=== PATIENT | male | born 1980 | race Caucasian/White ===

== ENCOUNTER 2018-12-13 21:00 | Emergency (ER) | payer BC ==
[2018-12-13 21:18] VITALS: BP 109/69
[2018-12-13] MEDS ORDERED: DOXYcycline CAP(*) 100 MG PO ONE (21:36)
--- NOTE | 2018-12-13 21:37 | UC ---
General HPI - HPI Summary HPI Summary: pt removed a tick from his R side. he is c/o burning at the site. the tick is mildly engorged. - History of Current Complaint Chief Complaint: Naeem Stated Complaint: INSECT BITE Time Seen by Provider: 12/13/18 21:15 Hx Obtained From: Patient Pain Intensity: 0 Associated Signs & Symptoms: Negative: Fever - Allergy/Home Medications Allergies/Adverse Reactions: Allergies Allergy/AdvReac Type Severity Reaction Status Date / Time Penicillins Allergy Severe Unknown Verified 12/13/18 21:18 Reaction Details Home Medications: Home Medications NK [No Home Medications Reported] 12/13/18 [History Confirmed 12/13/18] PMH/Surg Hx/FS Hx/Imm Hx Previously Healthy: Yes - Surgical History Surgical History: None - Family History Known Family History: Positive: Non-Contributory - Social History Occupation: Employed Full-time Lives: With Family Alcohol Use: Weekly Substance Use Type: None Smoking Status (MU): Never Smoked Tobacco - Immunization History Vaccination Up to Date: Yes Review of Systems All Other Systems Reviewed And Are Negative: No Constitutional: Negative: Fever, Fatigue Musculoskeletal: Negative: Arthralgia Neurological: Negative: Weakness, Paresthesia, Numbness Physical Exam Triage Information Reviewed: Yes Appearance: Well-Appearing Vital Signs: Initial Vital Signs Temp 97.9 F 12/13/18 21:08 Pulse 78 12/13/18 21:08 Resp 16 12/13/18 21:08 BP 109/69 12/13/18 21:08 Pulse Ox 98 12/13/18 21:08 Vital Signs Reviewed: Yes Eyes: Positive: Conjunctiva Clear Neck: Positive: Supple Respiratory: Positive: No respiratory distress Musculoskeletal: Positive: ROM Intact Neurological: Positive: Alert Psychological: Positive: Age Appropriate Behavior Skin Exam: Normal, Other - abrasion R side where tick removed. no bullseye. Course/Dx - Course Course Of Treatment: site cleaned and Bacitracin applied. - Diagnoses Provider Diagnosis: Tick bite Discharge - Sign-Out/Discharge Documenting (check all that apply): Patient Departure All imaging exams completed and their final reports reviewed: No Studies - Discharge Plan Condition: Stable Disposition: HOME Patient Education Materials: Tick Bite (ED) Referrals: FLORENCIO Leal [Medical Doctor] - If Needed - Billing Disposition and Condition Condition: STABLE Disposition: Home
== END 2018-12-13 21:43 | disposition home or self-care (01) ==
LOC: UCCORT 21:00
DX: T14.8XXA Other injury of unspecified body region, initial encounter (principal); W57.XXXA Bitten or stung by nonvenomous insect and other nonvenomous arthropods, initial encounter
CPT/HCPCS: 99202; A9270-GY; G0463

== ENCOUNTER 2019-02-20 18:03 | Emergency (ER) | payer BC ==
[2019-02-20 18:24] VITALS: BP 118/68
--- NOTE | 2019-02-20 19:44 | UC ---
Complaint Male HPI - HPI Summary HPI Summary: Per car lubricator: "sx started this morning--"a little bit difficulty" urinating, "discomfort" when urinating, no penile discharge, denies fever/chills/back pain -not concerned STDs -has some irritation of urethral meatus. small little dots and distal shaft. not elevtead. not itchy. not painful. no tingling. -. -reports monogamy w/ . last intercourse 4 days ago. uncertain if his may have any sx or yeast infection sx. -no swelling/lumps/bumps. [id number]36770678565463297779038 [id number]44220861188 4972125070847380394118384774855721514912321198274148630396598731769DUB "[id number]09412265932287837 30686481015128551699913707258137765549632519935335 88041078241888608523772930878379967005149269747197029950774143405537083406659229 63817479266526839614694612790249248336591056176008323722622319522015105860744600 6758670782165059347912880225200473883391 22751270436664470064889010266521757104490701096183306021026876840761418474978432 93193325928282657484546644501441736508045799859113960157517065526846476367455174 8863619315217806096961665575539698998790 94633324612591995278210321272591324015387103341900068458262340963603975290431687 49978425106866254233860529019894360802748022455049567639196115497360914629980668 3944436546732301516574576459451878267586 58348412044612669028012780875814736025659906953970821582391164698680145906185112 55262984790015737995848258174876951446132934909374746635114146340774324043200885 7234040224026913299812793730197121577196 35440654996155871473759611515324220094924878926007006087028983432303898530324934 43707298894017939298536425814449239435666868554442974660244324634678793569351646 2304125753197121657850412493370461195947 41532194801790755578571309621222305594469861063237153606382153984564699707957764 74838864910242414827854307999148700887232518191634366870101238986615718331287564 9380513305530711150055560344587568410191 47421840469155338126583063938365085968782021123736393468416894912895381361275483 03001768702941979072016243011801964896960323475015314474153924762354129825329096 9864109508683998440697305569726139958065 69151383475665078896590730487898223416658424702354380625652295212494829431933488 67387350698258353736055071590055252907122423253504121688183970798259642976090578 3266679030408835558401985966655320274486 64090590568818296920669322842424776239037704863273083671468134388725814593267341 99278189659238666151532720163866896311356061060238705614327274152434509705762785 8193031129644277851379680456903292642030 62352791291091813204443904792125712462802712758287724757383168603498357753067249 66497600996666775210492572028123639400052068113683088868393407379094309795961462 6229757755367200409068477423156700957573 34705935070636721038945238220111394018707304809021453141127836513749375140467108 89617684531090055750640014874994237482780455627979266539509764766448381820092627 9278999554556490521686320087878203809033 08813758772338792503170034775999237007919802261758703175947205902182250964990736 70937447948341988721670547476588283428510370274659085075179603708941663503169588 8387002455854822519536937722276911349237 77518021567774812076064691113897703068780919248267045342164790690193612579180469 49293540822274355686802018582980479710885869371327575527699006646330950834934089 1481568125741702133123991194427024156707 77939207419486529983688860583807992198501715008005383675592633942877879131396483 75767215066578649767992506510805186480737101111464773761870848167200900683784639 5064249192909296980607933652243030462921 16814193423373541219605720837767211895199553512932477948163365703657377298622212 70878950432491932075739152642813678034348276485537595361347406425583068549913605 1579705882255308314418317083243193961777 69202574772191180087311823636458165006147933274748571363349818504427377849391982 94359054020770012620310373008345410426211438385165628630564138792274367010620391 7989911744063000875474108472928162422701 16386007373569748949667316025339130242908069356600613253536310060222128860684386 43537747480999149826381195422048209174346928531036544976460578800651305826026145 0774713208976584954721811736364794994625 58527143171588158590689609501278732213555595867863072547538204606538870494415714 22943503323471446677989181648360190208495619919508596002669045726865226134742868 7910100041835306790903465057535200402869 51943412535774254489605823859316778177020715248173770489770970341326384945531597 76518496515965371736363001160974458593459878047164679939304023257795906103519737 2189293996344109594203521330128522440076 91135574496019701422672456715894646797524920504025924121564976979873418947959636 10757600649321204542846367600585424455927104257016878062236367999207396911164727 6981105570010655384162729681276509297844 45892254048913665206681972714766431635503047580922078183782324663624756816156768 77849014923190271470246958231991618030917595882970115841998601086074306745589628 5794816897556094664977700051058168009934 81522639325658199988442924465966706153368530058870086026412547169254787564801026 43916694763132893684283196661232240136611000281147499227225926322757937428120944 1345150133328956190175545359506460046214 17632823592479505006549670533307383766775714659369441951648785285350436806625682 00863611276088720316757485340902999670157552691750615432619109937951885987463223 3542735684621467953265031769629678334442 02344138324710313494354166153031134476554820221692900076119709345909160864137700 64949815798094450744016945528482716931585774851753095827301727931811412199436868 0874277734005074365797311129287111262087 91031283023792717934889369973602379432174384694885644929342786778453524014950146 90605270165130268060656931262079746550032050577711728322875402409413127206520978 6110338740034350847719723176792238128887 66726910444608752678769731420866007849807178831187594324701537383935613065717115 30589442112072535187729871057916903237511831119378458245516619386673422990651338 8560665664585125189642225073955861147779 87726286353083025237913865345357055709922207188803274803406858394328396638488444 38223254278640082071497436955807284282776671259857442191463620563942381632998141 0829486537594828317562334995242961823924 76711860621538764241734097400616813748697585276180736419515876477384217206865309 32149959017290789097307169045743924960897814609079248199375273713852512613695514 4984686377819582498274239262776626081090 32234236563494710032996280089144083537525373592259254014201652343808373005231694 02181943845005253382436226318329474375063619538381855405334091806529902305589971 7989762586314950678245656508914418279554 06136807159179263083231544230599248091794278604031114496305486313167184646157805 59516189026700558244568410829011615265776643604984304938097249872806508549586831 3770495757856812763795003084009669022774 08996358367207959372531080842981214724579308449881450700660130652151028038167852 12692370751519601124418426630299926321984803789471799848449400211295953377683039 5679357651689736294282839742037065064457 99575923525958276940642394723116946526105992040197383909070785999456338394638423 01261713902797571555953867195579330617549566386241488378504710230156960411196508 4935088495853362654917944848340659855707 44495364872297529703292376804805316845871181449923397184390747783512808334580919 97190238559483378644570998553163070970679112829383861764790492013481507530838943 5529485461511349195509640233980479307411 62708117703638558844126045880455704363664798250962092838203092926071656999785258 32179137934568834609090137943820441422407129737804924038144731064823317208433631 2293646951032292068942773673846197833191 00011642076442518019471155755130395078736038539840665676147003109401895426965228 93600327796715331730453817479230687218580286657826825723942615636700882090232681 1416453958663648606749416808389953252202 99542716740984975734512582364226737127665309325365585924723087831536199884194366 56606947024817739832950041083703595430298918254945701125801530127830150613106027 1491565803346206959387460812039896576951 80894459639060880815227352777380030993870199083459351732929200707910946085894915 91892578404246639044025181877452840971111758825622487987232948585989250199124132 9854161045289599378793159275433209797996 86694857917577169548216538417008069827642080376680999786082755416679352886818327 87193722730039610532008714373051707328387286910823023833562462618364204319815219 0622093861836746529020683540916421236028 53439027379135177738159331919373261544780613284730393624672946847837673319193092 72531994691592917620795525839069542543223572786320896311773903264856169395650181 1336115527934061203858475953345338186937 01060764870967691646322622486364649627947302559160810268853756940488184833174495 27245945861460819606576114280201268702552757080854005227146165940982318229069520 0122930919401346884629445310954967459595 80016591352817444298236706687398887323135187889405100760549310991560399935668926 08866833322882094933834097547490636091791608607071444787380736711468427988187776 0477012348371197844320526009641632674024 27165341935689695503264381775323760172980768624355083997666369922433961721322808 21881047831577400733520742661662660769241166885236059093110239909146291782749406 7536317000064093289661270407845346046851 19160413795387598330718333555535031527735347764874228934225200544296568474140366 36755105280901629989603833063514653179851035551166723412290559927267909344057121 8731284211045241299570724519650029328364 86694589109249225859757932391659731520221166886592639291807396173128838528974375 19348147880193243955954998433773281992057189201933157171093504577566088445774737 2605977490077348668886416000616896835545 07291801185633340736025900476273187879295033874466438778124614234233101855816481 60202755491186657599040867457037784480605637419386374720898489925927289843781218 2545888622376007549763007292286672207803 31395442295298596514033368060115276240847856247587929951794453329304655532574423 28328537117674960361660676232955981041190886256609626344121517415219329459716721 0860285468660150724383904345262565242108 84450333243214641667018505366821157494134683460149305905676467225552525164991646 99109735343529520573024309298397517418057918593440171002973721177711200827360576 8287519562711437243590603509370153098131 89807034569428031075091477332034156314610223721019354990155776718206247004784237 44972178890613891843581547599890075389545409959409197040706152201498482265068811 5848654419517726626546212274890666680296 62590708246122023271751950145307921866963411277558278994072420105356264731076551 70993547220802869168188977314327740552726123437937269572057606798214468928784596 2590134066576370504353812548432161630314 03271822548296423558856067203115176824972449309526759784692824759355011498067795 28813744131320818803575393931236650458819159668176905231923230730432746174873695 2791251984622347782875179423290492437938 90136789561176605133499191656565887714756216655433709656987079100123260192401048 84216471773817336153762871048271017515789120321864355411314100795981809199218121 0270641316924047553181537000698165293250 58215591885004867904044265836831264015207672664506868539734119336353779869379210 58975944329993973278869713720703364974554658989497838399387426701737466000012418 6397640495476128428819209709053404368931 81501947537679374636142762327192664218594763590764718693158340759582238363863385 62367130713964912499111700168090903662424479307629558597010517653262423139641861 8983153908578484893250454293808031942129 81299232207679505940957217735387887773317300917493272207252649874161993976037267 46277939680197679797609165056757162532168796816853826186991741516838676466764573 2013021787649631860268884478625686827091 19275055797122440876287026613304467251418270289661706867893738032027558156840859 19209796976440836984737920831478791563486651661398219500557758186512110810571330 5873628108183641136795174949957754578406 89151200728307339645687515062475900272378629514677737404964361447877927672752363 13140548546784503243437256639629532861683608024701767376366084891190266194283918 0675756080463068540809901540764020154411 01660997295326148502685681860871126786643381868848850196018419842852520859309676 77258523135696202391036660989370265592486077414575809114986913305721483582509218 2910715381444261757926139463566080624127 22784988211351614055829467710391057243520401901186348655411064433303097591592129 41978907233393416257004047695072869185598763628787249641691322844460608500292186 0301881226732689822215436004751480415302 31977486040063697762720283178407235068993486581336355252440652321585703468477057 86536977746879903532344640697530477872181476377172348999954287043633499387040282 6139199289535313578919921354333241267772 91649435687216046259256256768565921643290109769891972376442012203176217767152949 82356405996280521879947958417798420326504720210490920074450028236829065343794459 7920907384163691159181878181409840602088 34593768844220648244997126816561916035964941079423610039123610395469428665139626 78397818652056937742487323653829746680061351622628689239069292183779195112281188 2328995835407391086107736382463003096691 71775147462042550108854799246056522684549830686528843906291137518773439125405567 14193086825487276481443707928864430416769567158215112461487413811447910612030509 1369142079886172579474823609370014086599 71286216248928654260843819254505101677384396148097203564620473974041581722912453 03457562748145311049293953718925586323526108324903966273587565690579420093588240 7064814677814590479836505717578961586347 73034125294598580055359817304891834883967660483524168357482087655904528011747801 37771513856479127892873238362140959462489373948269408632178396145718757560574008 6163774195210249971729008339883337012936 81041437449486088745864365492278250139868919025868896569616450334884373422746186 78735556510924550289172314224300823790062729097157464671046497459843399556471295 2324066056184466903551035884658508191946 24373622286123057796609063955375193263554965499206126339468874993879820945004927 40179792024322691348621344841888777315007037527749992445604446550347019933373031 1498422832029930590568944090003962650763 09788451450468713633700257924051268161112386220550911848259114255371057286596766 20935702237461868605431881944706778159098552330932901583804579738031955745158518 0432741062582080221468279421212990425439 00731561023751465292009978712597359027254745447811733591719944371413295982754197 49083916223216995553531333401226282087544721120197368707955923656683246843742092 1457788303949422616364698669832747171954 29423368329801145676415547904914184962126861300233681131077364800417702950329792 75898041412414979977872205004545177658970813776861372229537330306432507459629293 8200158265645548395136597846574257405649 78584767389130656021568783521704258414493949116066336544344526198059137042264042 62632425824670220153299294922193948345852998933697060177074791555063998477015624 0407800064781639708038446163861468922857 31245728846290893065352910798934871596594674524857579217541698011620415143920357 30295517897635739999187587968312774749431261310919399242673941646666276682186572 1015455304848322049124903776121442047789 94520883938555228468233914741223232540628847120423030630055842967613802627121665 07753491193445910087799200155200291918767051842555015855987942640057841163298404 6759665162926465469936104623152835481851 82146640171822989584134762971635842019472049653800831841922148492896592881690632 77721119688250515463185429063764002986398762796623776699355532261150110150593191 3214926458115914768595167800253433527768 33360542833682524297984269109953793329959353699304637635959119247137284283887653 76395133489123081570725148805630389863888709473809586101359167053324086470928834 4016971527266014107992256796928326938694 74112457583580766349726011000882042269798942032291341975990241940986601367795414 09546196552749650891162303450414214419221045091775723270434921238341433905622111 5925633277923054416226995346159719506799 24689722937496301809922637498820183479920678428833539482060828783082023807941701 35949790323982013993445944726255364676840310469177681098315330561480366271203056 3103154320321028561835730557372312428344 76501625917759902654966652353466292026449562502671506746905928993895791652615170 29548098692137575589546766112899488749503180225482298026236528537837965290101583 3143169939546406814922685534910876227963 44228600134574993404497475480025360453541388167516516477268786283612722773576569 87921748196889135466351314692634673586831974999464246076246250964658376762741783 3273892373579335306233923627891236999375 88348015635131599284585358299202985308905193168648719807580172827187019683480773 26130435453160642773825036388407475751582930654396710433020861680340863860459616 1235137432947341694448784142323414407176 40310785580776172521739260004969802724817263336552574177654209098849462111231811 63494453852177384022171025121664613391629133049336223809978556769277470537835643 7341124234863409636551185840265445461581 38870844781070724847512349530130177073423389238001586632404647121164611732871431 34585599272253638518354318675637280143243860300911440169765464907022016871017465 5324465290761266973016798271845054288591 54529146626298306794277601423049731571137360044026531594497087452011965447351027 3333 - History of Current Complaint Chief Complaint: UCGU Stated Complaint: PERSONAL Time Seen by Provider: 08/08/19 18:32 Pain Intensity: 0 - Allergies/Home Medications Allergies/Adverse Reactions: Allergies Allergy/AdvReac Type Severity Reaction Status Date / Time Penicillins Allergy Severe Unknown Verified 02/20/19 18:24 Reaction Details PMH/Surg Hx/FS Hx/Imm Hx Previously Healthy: Yes - Surgical History Surgical History: None - Family History Known Family History: Positive: Non-Contributory - Social History Alcohol Use: Weekly Alcohol Amount: once a week Substance Use Type: None Smoking Status (MU): Never Smoked Tobacco - Immunization History Vaccination Up to Date: Yes Review of Systems All Other Systems Reviewed And Are Negative: Yes Constitutional: Positive: Negative. Negative: Fever, Chills, Fatigue Skin: Positive: Rash Eyes: Positive: Negative ENT: Positive: Negative Respiratory: Positive: Negative Cardiovascular: Positive: Negative Gastrointestinal: Positive: Negative Genitourinary: Positive: Dysuria, Urgency. Negative: Hematuria, Frequency Motor: Positive: Negative Neurovascular: Positive: Negative Musculoskeletal: Positive: Negative Neurological: Positive: Negative Psychological: Positive: Negative Is Patient Immunocompromised?: No Physical Exam Triage Information Reviewed: Yes Appearance: Well-Appearing, No Pain Distress, Well-Nourished - very pleasant Vital Signs: Initial Vital Signs Temp 98.1 F 02/20/19 18:19 Pulse 58 02/20/19 18:19 Resp 15 02/20/19 18:19 BP 118/68 02/20/19 18:19 Pulse Ox 100 02/20/19 18:19 Eye Exam: Normal Respiratory Exam: Normal Cardiovascular Exam: Normal Abdominal Exam: Normal Male Genital Exam: Positive: Erythema - mild non-blanching urtehral meatus. no sore/lesions. dorsal surface of distal shaft w/ 2- 3 mm in size non-blanching erythematous round spots w/ dc or streaks. non tender. no LAD. Negative: Bleeding Musculoskeletal Exam: Normal Musculoskeletal: Positive: Other: - Lyndsay Kapoor< RN as paragliding instructor in room during exam Neurological Exam: Normal Psychological Exam: Normal Skin Exam: Normal Complaint Male Course/Dx - Course Course Of Treatment: UA w/ trace blood. all else neg -treat w/ cipro x 7 d. order urine cx. -GC/chlam - he is agreeable to test although not concerned -? general urethral meatus irritation and treat spots w/ clotrimozole as ? fungal irritation - Differential Dx/Diagnosis Differential Diagnosis/HQI/PQRI: Phimosis, Other - UTI Provider Diagnosis: Dysuria Discharge - Sign-Out/Discharge Documenting (check all that apply): Patient Departure All imaging exams completed and their final reports reviewed: No Studies - Discharge Plan Condition: Stable Disposition: HOME Prescriptions: Ciprofloxacin TAB* [Cipro 250 MG Tab*] 500 mg PO BID 7 Days #14 tab Clotrimazole 1% CREAM* [Clotrimazole 1%*] 1 applic TOPICAL BID #30 tube Patient Education Materials: Dysuria (ED) Referrals: No Primary Care Phys,NOPCP [Primary Care Provider] - [facility] [Outside] - 7 Days Additional Instructions: We are sending the urine sample to see if there is any infection. Please make sure to follow up with a primary care physician, especially because of the small amount of blood in the urine. We are giving you an antibiotic in case there is a UTI. you can also use this topical anti-fungal cream as this may help the new spots that you have. - Billing Disposition and Condition Condition: STABLE Disposition: Home
[2019-02-26 00:21] LABS: Chlamydia trachomatis NAA Negative (Negative); Neisseria gonorrhoeae (GC) NAA Negative (Negative)
== END 2019-02-20 20:01 | disposition home or self-care (01) ==
LOC: UCCORT 18:03
DX: R30.0 Dysuria (principal); Z88.0 Allergy status to penicillin
CPT/HCPCS: 81003; 87086; 87491; 87591; 99212; G0463